=== PATIENT | male | born 1995 | race Caucasian/White ===

== ENCOUNTER 2016-10-18 20:52 | Emergency (ER) | payer BC ==
[2016-10-18] MEDS ORDERED: IBUPROFEN 400 MG TABLET PO ONE (21:21)
--- NOTE | 2016-10-18 21:40 | ER NURSING DOCUMENTATION ---
Nurse's Notes [facility] Name:Juan Diego Rhodes Age:21 yrs Sex:Male :1995 Arrival Date:10/18/2016 Time:20:52 Bed6 Private MD:Physician, No Diagnosis:Acute Myofascial Strain Presentation: 10/18 20:54 Presenting complaint: Patient states: left thigh pain after bronco riding today, fell lb and left leg got caught up in stirrup. able to weight bear with some pain. Transition of care: patient was not received from another setting of care. Notified ED Physician of Dr. Yousif notified. 20:54 Acuity: CHELI 3 lb 20:54 Method Of Arrival: Wheelchair lb Triage Assessment: 20:56 General: Appears uncomfortable, Behavior is appropriate for age, pleasant. Pain: lb Complains of pain in left quadriceps Pain does not radiate. Pain currently is 7 out of 10 on a pain scale. EENT: No deficits noted. Neuro: No deficits noted. Cardiovascular: No deficits noted. Respiratory: Airway is patent Trachea midline Respiratory effort is even, unlabored, Respiratory pattern is regular, symmetrical. GI: No deficits noted. : No deficits noted. Historical: - Allergies: No known drug Allergies; - PMHx: None; - PSHx: skull; - Tetanus: < 10 years. - Ebola Screening: : Patient denies exposure to infectious person. Patient denies travel to an Ebola-affected area in the 21 days before illness onset. . - Immunization history: Flu Vaccine < 1 year. - Social history: Smoking status: Patient states was never smoker of tobacco. Patient uses alcohol only on a social basis. - Code Status:: Full code. Screenin:00 Infectious Disease Risk None. Abuse screen: Denies threats or abuse. Denies injuries lb from another. Nutritional screening: No deficits noted. Assessment: 20:58 See Triage Assessment done by same RN. Pain: Complains of pain in left leg Pain does lb not radiate. Pain currently is 7 out of 10 on a pain scale. Neuro: Level of Consciousness is awake, alert, Oriented to person, place, time, event, Communications Analyst are equal bilaterally Moves all extremities. Speech is normal. Vital Signs: 20:56 BP 121 / 66; Pulse 87; Resp 20; Temp 98; Pulse Ox 95% on R/A; Pain 7/10; lb 21:39 BP 120 / 70; Pulse 82; Resp 16; Pain 3/10; lb ED Course: 20:53 Patient arrived in ED. em2 20:53 Physician, Eva is Private Physician. em2 20:54 Marlene Rashid is Primary Nurse. lb 20:55 Triage completed. lb 21:01 Satya Yousif MD is Attending Physician. ks 21:01 Valuables Remains with patient. lb 21:05 Kael Andrea DO, Ronnie Esteban MD is Referral Physician. sc Administered Medications: 21:11 Drug: Ibuprofen 800 mg; Route: PO; lb 21:38 Follow up: Response: Pain is decreased Outcome: 21:06 Discharge ordered by . ks 21:39 Discharged to [place] lb 21:39 Condition: stable 21:39 Discharge Assessment: Patient awake, alert and oriented x 3. No cognitive and/or functional deficits noted. Patient verbalized understanding of disposition instructions. 21:39 Instructed on discharge instructions, follow up and referral plans. [facility] 21:40 Patient left the ED. 10/19 11:58 Discharge F/U Call: Unable to reach: Signatures: Satya Yousif MD MD ks [place]-reg, [place]-reg em2 Hailey Villalobos Marlene Rashid
--- NOTE | 2016-10-18 21:40 | ER PHYSICIAN DOCUMENTATION ---
Physician Documentation [facility] Name:Juan Diego Rhodes Age:21 yrs Sex:Male :1995 Arrival Date:10/18/2016 Time:20:52 Bed6 Private MD:Physician, No ED Satya Farmer Disposition: 10/18/16 21:06 Discharged to Home/Self Care. Impression: Acute Myofascial Strain. - Condition is Good. - Discharge Instructions: SHANKAR WRAP, Injuries, Leg - MUSCLE STRAIN, Extremity. - Medical Reconciliation form form. - Follow up: Kael Andrea DO, Ronnie Esteban MD; When: 1 week; Reason: Recheck today's complaints. - Problem is new. - Symptoms are unchanged. HPI: 10/18 21:02 This 21 yrs old Male presents to ER via Wheelchair with complaints of Leg sc Pain - LEFT. 21:02 The patient presents with an injury, pain, that is acute. The complaints affect the sc medial aspect of left thigh. Context: The problem was sustained at a sports field or court, rodeo, groin pull. Onset: The symptom(s)/episode began/occurred 30 minute(s) ago. Associated signs and symptoms: The patient has no apparent associated signs or symptoms. Historical: - Allergies: No known drug Allergies; - PMHx: None; - PSHx: skull; - Tetanus: < 10 years. - Ebola Screening: : Patient denies exposure to infectious person. Patient denies travel to an Ebola-affected area in the 21 days before illness onset. . - Immunization history: Flu Vaccine < 1 year. - Social history: Smoking status: Patient states was never smoker of tobacco. Patient uses alcohol only on a social basis. - Code Status:: Full code. ROS: 21:03 Constitutional: Negative for fever, chills, and weight loss. sc Eyes: Negative for injury, pain, redness, and discharge. Neck: Negative for injury, pain, and swelling. Cardiovascular: Negative for chest pain, palpitations, and edema. Respiratory: Negative for shortness of breath, cough, wheezing, and pleuritic chest pain. Abdomen/GI: Negative for abdominal pain, nausea, vomiting, diarrhea, and constipation. Back: Negative for injury and pain. Skin: Negative for injury, rash, and discoloration. 21:03 Neuro: Negative for headache, weakness, numbness, tingling, and seizure. sc 21:03 MS/extremity: Positive for injury or acute deformity, pain, Negative for contusion, decreased range of motion, paresthesias, tingling. Exam: Constitutional: This is a well developed, well nourished patient who is awake, alert, and in no acute distress. Head/Face: Normocephalic, atraumatic. Eyes: Pupils equal round and reactive to light, extra-ocular motions intact. Lids and lashes normal. Conjunctiva and sclera are non-icteric and not injected. Cornea within normal limits. Periorbital areas with no swelling, redness, or edema. Neck: Trachea midline, no thyromegaly or masses palpated, and no cervical lymphadenopathy. Supple, full range of motion without nuchal rigidity, or vertebral point tenderness. No meningismus. Cardiovascular: Regular rate and rhythm with a normal S1 and S2. No gallops, murmurs, or rubs. Normal PMI, no JVD. No pulse deficits. Respiratory: Lungs have equal breath sounds bilaterally, clear to auscultation and percussion. No rales, rhonchi or wheezes noted. No increased work of breathing, no retractions or nasal flaring. 21:03 Back: No spinal tenderness. No costovertebral tenderness. Full range of motion. sc 21:03 Musculoskeletal/extremity: Extremities: grossly normal except: pain, ROM: full active range of motion, full passive range of motion, limited active range of motion due to pain, in the medial aspect of left thigh, Circulation is intact in all extremities. Sensation intact. Vital Signs: 20:56 BP 121 / 66; Pulse 87; Resp 20; Temp 98; Pulse Ox 95% on R/A; Pain 7/10; lb 21:39 BP 120 / 70; Pulse 82; Resp 16; Pain 3/10; lb MDM: 21:04 Differential diagnosis: contusion. Data reviewed: vital signs, nurses notes, and as a ri result, I will discharge patient. Counseling: I had a detailed discussion with the patient and/or guardian regarding: the historical points, exam findings, and any diagnostic results supporting the discharge/admit diagnosis, the need for outpatient follow up, to return to the emergency department if symptoms worsen or persist or if there are any questions or concerns that arise at home. 21:06 Patient medically screened. ri 10/18 21:02 Order name: ORTHO: 6" Shankar Wrap; Complete Time: 21:11 ri 10/18 21:02 Order name: ORTHO: Ice Pack; Complete Time: 21: ri Dispensed Medications: 21:11 Drug: Ibuprofen 800 mg; Route: PO; lb 21:38 Follow up: Response: Pain is decreased lb Signatures: Satya Yousif MD MD ri Marlene Rashid
== END 2016-10-18 21:40 | disposition home or self-care (01) ==
LOC: ER 20:52
DX: S76.912A Strain of unspecified muscles, fascia and tendons at thigh level, left thigh, initial encounter (principal); V80.010A Animal-rider injured by fall from or being thrown from horse in noncollision accident, initial encounter; Y92.39 Other specified sports and athletic area as the place of occurrence of the external cause; Y93.52 Activity, horseback riding
CPT/HCPCS: 99283